=== PATIENT | female | born 1985 | race Caucasian/White ===

== ENCOUNTER 2016-09-29 06:05 | Day surgery (SDC) | payer BC ==
[2016-09-23 15:55] LABS: BASOPHILS 0.3 %; BASOPHILS ABSOLUTE 0.02 10/3/uL (0.0-0.16); EOSINOPHILS 1.1 %; EOSINOPHILS ABSOLUTE 0.08 10/3/uL (0.0-0.53); HEMATOCRIT 38.4 % (36.0-48.0); HEMOGLOBIN 12.7 g/dL (12.0-16.0); LYMPHOCYTES 40.6 %; LYMPHOCYTES ABSOLUTE 3.02 10/3/uL (0.67-4.30); MEAN CORPUS HGB CONC 33.1 g/dL (32.0-36.0); MEAN PLATELET VOLUME 12.6 fL (9.2-13.0); MONOCYTES 6.5 %; MONOCYTES ABSOLUTE 0.48 10/3/uL (0.21-1.20); NEUTROPHILS 51.5 %; NEUTROPHILS ABSOLUTE 3.83 10/3/uL (2.02-8.40); PLATELET COUNT 219 10/3/uL (150-400); RED CELL COUNT 4.38 10/6/uL (4.0-5.6); WHITE BLOOD CELLS 7.4 10/3/uL (4.5-10.5)
[2016-09-23 15:56] LABS: MANUAL DIFF NO %; MEAN CORPUSCULAR VOLUME 87.7 fL (80-100); RBC DISTRIBUTION WIDTH 12.7 % (12.0-16.0)
[2016-09-23 16:12] LABS: BUN (BLOOD UREA NITROGEN) 11 MG/DL (6-23); CALCIUM, SERUM 8.4 MG/DL (8.5-10.4); CHLORIDE, SERUM 105 MMOL/L (96-112); CO2 (CARBON DIOXIDE) 25 MMOL/L (24-34); CREATININE 0.88 MG/DL (0.55-1.02); GFR AFRICAN AMERICAN 101 ML/MIN (>=60); GFR NON AFRICAN AMERICAN 87 ML/MIN (>=60); GLUCOSE, SERUM 84 MG/DL (60-99); POTASSIUM, SERUM 3.7 MMOL/L (3.5-5.3); SODIUM, SERUM 141 MMOL/L (135-148)
--- NOTE | ~2016-09-29 | OP ---
Record Of Operation [facility] [address] [place]. 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 OPERATIVE PROCEDURE PERFORMED: 1. Septoplasty. 2. Bilateral inferior turbinoplasty. INDICATIONS AND SIGNIFICANT HISTORY: The patient is a 31-year-old female with significant history of several years' duration of nasal airway obstruction following a nasal trauma. She was evaluated in clinic and was found to have a markedly deviated cartilaginous septum and markedly hypertrophic inferior turbinates. While turbinate hypertrophy was aided some with topical nasal steroid spray, however, a septal deviation persisted. She was felt to benefit from septoplasty and inferior turbinoplasty and was scheduled for such. OPERATIVE PROCEDURE AND FINDINGS: After informed consent was obtained, the patient was brought to the operating room and placed on the operating table in the supine position, at which point, general endotracheal anesthesia was induced by the Anesthesia Service and the nose was prepped and draped in a standard fashion. The nose was infiltrated with approximately 2-3 mL of 2% lidocaine with 1:100,000 epinephrine and an incision was made in the left naris along the caudal edge of the cartilaginous septum. The mucoperichondrial flaps were elevated on the left and right side of the septum and approximately a 5 mm anterior border of the septum was trimmed and noted to have a significant break deflection. An incision was made to separate the bony maxillary crest and the cartilaginous septum. This allowed some of the tension to be released and the septum to straighten. Approximately, a 4 mm rim of anterior septal cartilage was removed as well. The bony spur was removed in the back of the nose with Jefry-Junie forceps and behind the nose, an S- shaped deformity was trimmed with a Roberta swivel knife. The deflected portion of cartilage was resected and a 2 x 2 cm piece of cartilage was placed between mucoperichondrial flaps. This provided replacement of the septum back to midline and preserved tip support, as well as dorsal support nose. Attention was then turned toward the turbinates where inferior turbinoplasty was performed. A suction shaver device was inserted into the head of the turbinate and advanced to the posterior edge. Submucous resection was then performed followed by outfracture, medialization and lateralization of the inferior turbinate with a [place] septal displacer. The patient then had septal splints placed bilaterally, was turned back toward anesthesia, aroused from anesthesia, and taken to the postanesthesia care unit in satisfactory condition. COMPLICATIONS: None. ESTIMATED BLOOD LOSS: Less than 20 mL. Record Of Operation [address] [address] NAME: ADELITA RESENDEZ FILER : 83 STATUS : [facility] PAT#: [id number] AGE: 31 ADM/REG DATE : 09/29/16 MR#: [id number] REPORT SERV DATE: 09/30/16 DICTATED BY: REYNA BOOKER DATE: 09/30/16 REPORT STATUS : Draft TRANSCRIBED BY: ARMANI DATE: 09/30/16 IV FLUIDS: Per Anesthesia. DLA/MODL Reyna Booker M.D. / [id number] CC: Marielena Moise M.D.
[~2016-09-29 06:05] MED LIST: ALLEGRA180 PO; BUSPAR10 PO; NUVARING1 EACH V
== END 2016-09-29 12:21 | disposition home or self-care (01) ==
LOC: SDC 06:05
PROVIDERS: Otolaryngology
PROC: 09BM0ZZ Excision of Nasal Septum, Open Approach (ICD-10-PCS; principal; 2016-09-29 07:30)
DX: J34.2 Deviated nasal septum (principal); J32.8 Other chronic sinusitis; J34.3 Hypertrophy of nasal turbinates; Z98.890 Other specified postprocedural states; Z90.49 Acquired absence of other specified parts of digestive tract; Z79.899 Other long term (current) drug therapy
CPT/HCPCS: 80048; 84703; 85025; 88300; 88305; A9270-GY; J0690; J1170; J2250; J2405; J3010